=== PATIENT | female | born 1940 | race Caucasian/White ===

== ENCOUNTER 2025-03-05 16:19 | Outpatient (RCR) | payer OTHER, SELFPAY | END 2025-03-05 23:59 | disposition home or self-care (01) | LOC: CRHB 16:19 | PROVIDERS: ATTENDING PHYSICIAN Internal Medicine Clinical Cardiac Electrophysiology; FAMILY PHYSICIAN Family Medicine | DX: I25.10 Atherosclerotic heart disease of native coronary artery without angina pectoris (principal); I25.2 Old myocardial infarction; I10 Essential (primary) hypertension; Z95.5 Presence of coronary angioplasty implant and graft; E78.5 Hyperlipidemia, unspecified | CPT/HCPCS: G0422; G0423 ==

== ENCOUNTER 2025-03-23 16:19 | Outpatient (RCR) | payer OTHER, SELFPAY | END 2025-03-23 18:30 | disposition home or self-care (01) | LOC: CRHB 16:19 | PROVIDERS: ATTENDING PHYSICIAN Internal Medicine Clinical Cardiac Electrophysiology; FAMILY PHYSICIAN Family Medicine | DX: I25.10 Atherosclerotic heart disease of native coronary artery without angina pectoris (principal); I10 Essential (primary) hypertension; E78.5 Hyperlipidemia, unspecified; Z95.5 Presence of coronary angioplasty implant and graft | CPT/HCPCS: G0422 ==

== ENCOUNTER 2025-04-02 21:36 | Observation (INO) | payer OTHER, SELFPAY ==
[2025-04-02 15:03] VITALS: BP 178/77
--- NOTE | 2025-04-02 17:00 | ED.GENMED ---
History of Present Illness
General
Chief Complaint: Back Pain
Time Seen by Provider: 04/02/25 16:44
History of Present Illness
History of Present Illness:
84-year-old female presents to the emergency department for evaluation of acute onset low back pain that began when she was attempting to get into her car. She states she twisted to close the car door when she felt sudden pain which caused her to
fall back into the car seat. She reports frequent episodic pain to the right lumbar spine that radiates to the right hip, no lower extremity paresthesias or loss of urinary function. She denies any recent fevers or chills. There was no direct
trauma to the back. She has not taken any medications for pain control prior to arrival
Review of Systems
Review of Systems
Allergies reviewed?: Yes
All Other Systems: ROS reviewed and negative except as documented in HPI and ROS
Phy Exam
Physical Exam
Physical Exam:
GEN: Well appearing, NAD, WDWN
HEENT: Oral mucosa moist, no scleral icterus
Cardiac: Regular rate
Lung: No respiratory distress, no tachypnea
MSK: No gross deformity or injuries. No midline lumbar spine tenderness. Lumbar range of motion limited secondary to pain. No reproducible tenderness to the paraspinous musculature. Free unrestricted range of motion bilateral hips and lower
extremities
Skin: Good color, no pallor or jaundice, no rashes
Neuro: AO x3, moves all extremities freely
Psych: Calm, cooperative
Course
Orders/Labs/Results
Orders:
Orders
04/02/25 Breakfast
Cholesterol Lowering
At Your Request: Limited Participation
Cholesterol Lowering: Sodium, 2 Gram
04/02/25 16:59
Acetaminophen [Tylenol] 1,000 mg PO NOW STA
Lidocaine [Lidocaine 4% Patch] 1 patch TOPICAL NOW STA
Apply Lidocaine patch(s) to:: R low back
Tramadol HCl [Ultram] 50 mg PO NOW STA
04/02/25 18:12
HYDROmorphone [Dilaudid] 0.25 mg IV NOW STA
Ketorolac [Toradol] 15 mg IV NOW STA
Ondansetron Injectable [Zofran] 4 mg IV NOW STA
04/02/25 18:22
Complete Blood Count/With Diff Urgent
Comprehensive Metabolic Panel Urgent
Urinalysis Reflex To Culture Urgent
Date Specimen was Collected: 04/02/25
Time Specimen was Collected: 18:18
Urine Microscopic Reflex Cult Urgent
04/02/25 19:13
CR Lumbar Spine Comp Min 4 Vw* Urgent
Comment:
Reason For Exam: non traumatic back pain
04/02/25 21:15
Admit/Transfer Patient As Directed
Co-Sign Provider:
Level of Care: Observation services
Assign to:: Medical/Surgical
Physician / Group: Soham
Diagnosis: acute back sprain
PRN Pain Medication Management As Directed
May give lesser potent ordered pain med per pt: Yes
preference::
Protocol:: Medication orders for pain may be administered in a
manner that supports deferring to patient preference
when the pt is:
- Requesting an ordered lesser potent pain medication.
Least to most potent pain medications are defined
as: acetaminophen < NSAID < tramadol < opioids
(morphine, oxycodone, hydromorphone).
- Requesting a lesser dose of the same medication IF
ORDERED.
- Requesting a less intrusive route of administration
if both routes are prescribed by the provider (PO <
IV).
04/02/25 21:17
Code Status As Directed
Resuscitation Status: Full Code
04/02/25 21:57
Bisacodyl [Dulcolax] 10 mg RECTAL [id number] PRN
Docusate W/Senna [Senokot-S] 1 tablet PO BIDPRN PRN
HYDROmorphone [Dilaudid] 0.25 mg IV Q4HPRN PRN
Ibuprofen [Motrin] 400 mg PO Q6HPRN PRN
Ondansetron Injectable [Zofran] 4 mg IV Q6HPRN PRN
Polyethylene Glycol Powder [Miralax] 17 grams PO DAILYPRN PRN
Tramadol HCl [Ultram] 50 mg PO Q6HPRN PRN
04/02/25 21:57
VTE Contraindication Routine
VTE Mechanical Device Contraindication: Medical Contraindication
Pharmocologic Contraindication: Medical Contraindication
Activity As Directed
Activity Level: With Assistance
Vital Signs As Directed
Frequency: Per unit guidelines
Pulse Ox/spot Check [RESP] Routine
Quantity: 1
Pt Eval And Treat Routine
Activity Level: With Assistance
04/03/25 00:00
Acetaminophen [Tylenol] 650 mg PO Q4HWA
04/03/25 08:00
Amlodipine [Norvasc] 2.5 mg PO DAILY
Apixaban [Eliquis] 2.5 mg PO BID
Aspirin Low Dose EC [Aspir Low (Enteric Coated)] 81 mg PO DAILY
ISOSORBIDE MONOnitrate ER [Imdur (Extended Release)] 30 mg PO DAILY
Lisinopril [Zestril] 40 mg PO DAILY
Metoprolol Xl [Toprol Xl] 25 mg PO DAILY
Pantoprazole [Protonix] 40 mg PO DAILY
04/03/25 18:00
Atorvastatin [Lipitor] 20 mg PO QPM
Abnormal Lab Results
04/02/25
18:22
RBC 3.21 L 10^6/uL
(4.20-5.40)
Hgb 9.0 L g/dL
(12.0-16.0)
Hct 29.1 L %
(37.0-47.0)
MCHC 30.9 L g/dL
(33.0-37.0)
BUN 21 H mg/dl
(7-17)
Glucose 114 H mg/dl
(70-99)
Calcium 11.5 H mg/dl
(8.4-10.2)
AST 39 H U/L
(14-36)
Urine Bacteria (Reflex) Few A
(Negative)
Urine Albumin (Reflex) 1+ A
(Neg - Trace)
04/02/25 18:22
04/02/25 18:22
Vital Signs
Initial and Last Documented VS:
Initial Vital Signs
Temp Pulse Resp BP Pulse Ox
98.3 F 72 16 178/77 97
04/02/25 15:03 04/02/25 15:03 04/02/25 15:03 04/02/25 15:03 04/02/25 15:03
Last Documented Vital Signs
Temp Pulse Resp BP Pulse Ox
98.3 F 78 18 112/66 98
04/02/25 15:03 04/02/25 21:40 04/02/25 21:40 04/02/25 21:40 04/02/25 21:40
MDM/Problems Addressed
MDM/Problems Addressed:
Patient received multiple analgesics in the ED without significant improvement in her symptoms. She is able to ambulate. However very unsteadily. She also feels somewhat lightheaded after receiving opiates thus is not suitable for discharge to
home without further monitoring, will admit for observation
*Pulse Oximetry
SaO2: 97
Patient hypoxic: no
*Critical Care Note
Total Time (30-74mins, 75-104mins- exclusive of procedures): Not Applicable
ED Attending Note
-
Portions of this chart may have been created with voice recognition software.� Occasional wrong word or��sound alike� substitutions may have occurred due to the inherent limitations of voice recognition software.
Discharge Plan
Departure
Patient Disposition: Admit
Date of Disposition: 04/02/25
Time of Disposition: 20:48
Admit to: Med/Surg
Presentation/result/management discussed w/ accepting MD/DO: Hospitalist
Discharge Problem:
Intractable low back pain
Interventions
Interventions:
*Risk Screen - Suicide Last Done: 04/02/25 21:58
*General Assessment Last Done: 04/02/25 16:50
*Neglect/Abuse Screening Last Done: 04/02/25 15:03
*ED COVID-19 Vaccine History Last Done: 04/02/25 21:58
*Nursing Disposition Last Done: 04/02/25 22:06
ED-Musculoskeletal Assessment Last Done: 04/02/25 16:50
Discharge Date and Time
Discharge Date/Time: 04/02/25 22:07
[2025-04-02] MEDS: TYLENOL 1000 MG PO (17:26)
[2025-04-02] MEDS: LIDOCAINE 4% PATCH 1 PATCH TOPICAL (17:26)
[2025-04-02] MEDS: ULTRAM 50 MG PO (17:26)
[2025-04-02] MEDS: ZOFRAN 4 MG IV (18:27)
[2025-04-02] MEDS: TORADOL 15 MG IV (18:27)
[2025-04-02] MEDS: DILAUDID 0.25 MG IV (18:28)
[2025-04-02 18:52] LABS: Hematocrit 29.1 % (37.0-47.0); Hemoglobin 9.0 g/dL (12.0-16.0); Mean Corp Hgb Conc. 30.9 g/dL (33.0-37.0); Mean Corpuscular Volume 90.7 fL (81.0-99.0); Nucleated Red Blood Cells % 0 %; Platelet Count 302 10^3/uL (130-400); Red Cell Dist. Width 14.5 % (11.5-14.5)
[2025-04-02 19:06] LABS: ALT (SGPT) 24 U/L (0-35); AST (SGOT) 39 U/L (14-36); Albumin 3.9 g/dl (3.5-5.0); Alkaline Phosphatase 67 U/L (38-126); Blood Urea Nitrogen 21 mg/dl (7-17); Calcium 11.5 mg/dl (8.4-10.2); Carbon Dioxide 27 mmol/L (22-30); Chloride 107 mmol/L (98-107); Glucose 114 mg/dl (70-99); Potassium 4.0 mmol/L (3.5-5.1); Sodium 136 mmol/L (135-145); Total Protein 6.4 g/dl (6.3-8.2); eGFR > 60.00
[2025-04-02 19:31] LABS: Urine Character Clear (Clear)
[2025-04-02 19:40] LABS: Urine Urothelial Cell 0-2 /LPF (FEW)
[2025-04-02 19:41] LABS: Urine Red Blood Cell 0-2 /HPF (0-2)
--- NOTE | 2025-04-02 20:57 | HPS.HSE ---
Family Physician
-
Family Physician: Aries Urbina
Chief Complaint
-
Back pain
History of Present Illness
84-year-old female with past medical history significant for CAD status post VT and stents in the RCA, hypertension, hyperlipidemia, history of prior PE presenting to the emergency department with back pain.
Patient reported that she was getting in and out of her car this morning when she twisted her right leg and almost fell into the But did not fall on the ground. Immediately afterwards she has severe back pain and she could not even move her leg.
She denies having any numbness or tingling. There was no incontinence of the bladder or bowel. She was taken to urgent care initially but she could not even stand up for an x-ray and could not be prescribed any immediate pain medications due to
her risk factors.
Of note patient reported that she was recently at [facility] about a month or so ago for chest pain. The she had finding of almost total occlusion of one of the blood vessels at 90%. She already had stents with multivessel disease and
determined that she would only benefit from CABG but she is not a candidate for surgery. She was started on oral nitro and the patient states she has not had chest pain since then. She denies feeling dizzy or lightheaded.
She has continued on aspirin as well as her Eliquis.
In the emergency department she was hypertensive to 178/77, pulse 172 and she was satting 96% on room air. Temperature was 90.3. UA was unremarkable. CBC was completely within normal range with a hemoglobin of 9.0. Electrolytes BUN/creatinine
were all in normal range and glucose was normal
Medical History
Past Medical History
Past Medical History: Reports CAD (Status post VT, RCA artery stent placement), HTN, Hypercholesterolemia, Valvular Disease (Aortic stenosis) and Other (Pulmonary embolism, history of gallstones, lumbar disc herniation,)
Additional Past Medical History:
Past Surgical History: Reports Other (Cholecystectomy, hysterectomy)
Social History
Tobacco: Non-smoker
Alcohol: None
Drug: None
Family History
Family History: Not pertinent
Allergies / Home Medications
Allergies reflects when Allergies were last updated in [facility].
Home Medications with original date entered in [facility]
Allergy/Medication List:
Allergies
Allergy/AdvReac Type Severity Reaction Status Date / Time
acetaminophen (From Percocet) Allergy Nausea / Verified 04/02/25 15:03
Vomiting
codeine Allergy Nausea / Verified 04/02/25 15:03
Vomiting
oxycodone (From Percocet) Allergy Nausea / Verified 04/02/25 15:03
Vomiting
Home Medications
atorvastatin 20 mg tablet (Lipitor) 20 mg PO QPM 04/02/25
Review of Systems
-
Constitutional: Reports No Symptoms
EENT: Reports No Symptoms
Respiratory: Reports No Symptoms
Cardiac: Reports No Symptoms
Abdomen/GI: Reports No Symptoms
: Reports No Symptoms
Musculoskeletal: Reports No Symptoms
Skin: Reports No Symptoms
Neurological: Reports No Symptoms
Endocrine: Reports No Symptoms
Hematologic/Lymphatic: Reports No Symptoms
Psych: Reports No Symptoms
Physical Exam
Vital Signs
Vital Signs
Temp Pulse Resp BP Pulse Ox
98.3 F 72 16 178/77 97
04/02/25 15:03 04/02/25 15:03 04/02/25 15:03 04/02/25 15:03 04/02/25 17:01
Physical Exam
General: No Apparent Distress
HEENT: NormoCephalic, Moist mucous membranes and Atraumatic
Respiratory: Clear
Cardiac: S1/S2, Regular Rhythm and Murmur
GI: Soft, Non Tender, Non Distended and Normal Bowel Sounds; No Organomegaly
Rectal: Deferred by Provider
Musculoskeletal: No Clubbing, No Cyanosis and No Edema
Skin: No Rash
Neuro: Nonfocal/grossly intact
Laboratory Results
-
04/02/25 18:22
04/02/25 18:22
Laboratory Results
Total Bilirubin 0.7 mg/dl (0.2-1.3) 04/02/25 18:22
AST 39 U/L (14-36) H 04/02/25 18:22
ALT 24 U/L (0-35) 04/02/25 18:22
Alkaline Phosphatase 67 U/L (38-126) 04/02/25 18:22
Data Reviewed
-
Lab Data: Labs Reviewed by me
Old Records: Reviewed
Impression/Plan
-
IMPRESSION:
84-year-old with past medical history significant for CAD status post VT, hypertension, hyperlipidemia, aortic stenosis was not currently on any significant medications except for atorvastatin presents to the emergency department with intractable
low back pain. No recent trauma. She initially had severe pain but after analgesic medications in the ED she states that pain is much improved. Still have trouble ambulating and she has several flight of stairs to walk up at home and she does not
think she will be able to do it at this time.
PLAN:
Lumbago -no radicular signs, no myelopathic signs. No signs of acute infection. Patient improved with analgesics in the ED but is having difficulty ambulating.
-Admit to MedSurg observation
-Continue Tylenol [id number] for now
-low dose ibuprofen prn mild pain, tramadol moderate pain
-Lidocaine topical
-Toradol bid
-IV Dilaudid for severe pain
-Continue oxycodone 5 mg every 8 hours with hold parameter
- xray lumbosacral spine
-PT consult
CAD -chronic CAD status post VT and stenting, does have a current occlusion that cannot be intervened upon, currently no chest pain.
- Continue aspirin and statin
-Her metoprolol
- Continue Imdur
- Patient is on apixaban
Prior PE
- continue eliquis ppx
HTN
- continue her norvasc
- Continue lisinopril and metoprolol
DVT prophy�on Eliquis
CODE STATUS�full code
[2025-04-02 21:25] VITALS: BP 156/68
[2025-04-02 21:40] VITALS: BP 112/66
[2025-04-02 22:04] VITALS: BMI 24.0
[2025-04-02] MEDS: TYLENOL 650 MG PO (23:06)
--- NOTE | 2025-04-02 23:13 | PTCARENOTE ---
Pt admitted to [address] [place] [address] @ 2156 from ED. Pt ambulated to bed w/o issue. Pt AAOx3, [place], VSS. Admission assessment completed. Pt on cholesterol lowering diet. Pt with mild discomfort/soreness. Pt uses a cane at baseline but instructed to use a rolling
walker while here. Pt oriented to room, call singh within reach, bed locked and in lowest position. Reviewed plan of care with pt and answered all questions. Care ongoing.
[2025-04-03] MEDS: TYLENOL 650 MG PO ×3 (03:11→12:15)
[2025-04-03 07:35] VITALS: BP 177/88
[2025-04-03] MEDS: NORVASC 2.5 MG PO (08:16)
[2025-04-03] MEDS: ASPIR LOW (ENTERIC COATED) 81 MG PO (08:16)
[2025-04-03] MEDS: IMDUR (EXTENDED RELEASE) 30 MG PO (08:16)
[2025-04-03] MEDS: TOPROL XL 12.5 MG PO (08:16)
[2025-04-03] MEDS: PROTONIX 40 MG PO (08:17)
[2025-04-03] MEDS: ELIQUIS 2.5 MG PO (08:17)
[2025-04-03] MEDS: ZESTRIL 40 MG PO (08:17)
[2025-04-03 09:04] LABS: Blood Urea Nitrogen 22 mg/dl (7-17); Calcium 11.5 mg/dl (8.4-10.2); Carbon Dioxide 25 mmol/L (22-30); Chloride 106 mmol/L (98-107); Estimated Creatinine Clearance 35 ml/min; Glucose 75 mg/dl (70-99); Potassium 4.3 mmol/L (3.5-5.1); Sodium 136 mmol/L (135-145); eGFR > 60.00
--- NOTE | 2025-04-03 09:16 | W.PN.HOSP.TC ---
Addendum entered and electronically signed by Edison Erickson MD 04/03/25 12:05:
Please dont use billing under this note. Use Discharge billing instead
Original Note:
Today's Communication/Plan
-
PT and d/c depending on recommendations
Assessment / Plan
Assessment / Plan
84yo F with PMHx of oseoporosis, HLD, CAD with unoperable deffect, Hx of two back surgeries, GERD came to the hospital after she developed sharp lower back pain when she bended over and twisted her trunck, while closing car door. Due to severe
intractable pain stayed in the hospital overnight, however pain much decreased and controlled on tylenol only. XR showed no vertebral compression deformity and no spinal hardware failure. PT/OT recommended to evaluate the patient since she has to
use stairs at home. Also found new hypercalcemia. Patient s former smoker, so outpatient low dose CT of the chest and follow up for PTH level with Ca level recommended - patient verbalized understanding of the instructions
A/P:
#Lower back pain
no focal neurological deficit, no urinary/stool incontinence or retention
muscle strain vs mild radiculopathy
Voltaren topical
Tylenol
PT
#Hypercalcemia
mild
not on diuretics
checking PTH and vit D - follow up result with PCP
Low dose CT chest recommended as outpatient. XR chest in hospital is reasonable.
#Essential HTN
#Bradycardia
HR in 50th - decrease Toprol
cont home meds
#Hx of Pulmonary embolism
#CAD, stable
#GERD
#Osteoporosis
#HLD
cont home meds
DVT ppx Eliquis
Full code
I have spent at least 58min reviewing chart, test results and providing direct patient care
Anticipated Discharge: Today
Subjective/Interval History
-
Date of Service: April 03, 2025
Objective Data
-
Labs:
Laboratory Results
04/03/25
08:27
Sodium 136
Potassium 4.3
Chloride 106
Carbon Dioxide 25
BUN 22 H
Creatinine 0.9
Glucose 75
Calcium 11.5 H
Vital Signs:
Vital Signs
Temp Pulse Resp BP Pulse Ox
97.9 F 62 18 177/88 100
04/03/25 07:35 04/03/25 08:16 04/03/25 07:35 04/03/25 07:35 04/03/25 07:35
I&O
04/02/25 04/03/25 04/04/25
06:59 06:59 06:59
Intake Total 960 / 960
Balance 960 / 960
Review of Systems
-
History Source: Patient
All other systems: Reviewed and negative
Physical Exam
-
General: No Apparent Distress
HEENT: Normocephalic
Respiratory: Clear to Auscultation
Neuro: Awake, Oriented, AO x 3, No Motor Deficits and Nonfocal/Grossly Intact
Psych: Calm
[2025-04-03 09:20] LABS: Vitamin D, 25-OH*** 35.4 ng/mL (30-80)
[2025-04-03 11:52] LABS: Hepatitis B Surface Antigen Negative (Negative)
--- NOTE | 2025-04-03 12:03 | W.DCSUMMARY ---
Discharge Summary
Discharge Data
Date of Admission: 04/02/25
Date of Discharge: 04/03/25
-
Pending Results: No
Hospital Course
84yo F with PMHx of osteoporosis, HLD, CAD with inoperable defect, Hx of two back surgeries, GERD came to the hospital after she developed sharp lower back pain when she bended over and twisted her trunck, while closing car door. Due to severe
intractable pain stayed in the hospital overnight, however pain much decreased and controlled on tylenol only. XR showed no vertebral compression deformity and no spinal hardware failure. PT recommended discharge home. Also found new hypercalcemia.
Patient s former smoker, so outpatient low dose CT of the chest and follow up for PTH level with Ca level recommended - patient verbalized understanding of the instructions
I have spent at least 58min reviewing chart, test results and providing direct patient care
Patient was managed for:
#Lower back pain
#Hypercalcemia
#mild anemia - w/u by PCP
#Essential HTN
#Bradycardia
HR in 50th - decrease Toprol
#Hx of Pulmonary embolism
#CAD, stable
#GERD
#Osteoporosis
#HLD
Discharge Plan
-
Patient Disposition: Home (Routine Discharge)
Discharge Diagnosis/Procedures: back pain
Diet: Low Cholesterol
Activity: As tolerated
Referrals:
Aries Urbina DO [Family Provider, Family Practice] - in one to two weeks
Referral Note: repeat calcium blood test, if elevated - consider further w/u, low dose chest CT. also anemia workup
Prescriptions:
New
diclofenac sodium 1 % Gel
2 g topical QID 5 Days Qty: 50 0RF
Rx Instructions:
apply to lower back
Continued
atorvastatin [Lipitor] 20 mg Tablet
20 mg PO QPM
acetaminophen [Tylenol] 325 mg Tablet
650 mg PO Q6HPRN PRN (Reason: mild pain)
isosorbide mononitrate 30 mg Tablet Extended Release 24 Hr
30 mg PO DAILY
alendronate [Fosamax] 70 mg Tablet
70 mg PO MO
amlodipine [Norvasc] 2.5 mg Tablet
2.5 mg PO DAILY
aspirin 81 mg Tablet,Delayed Release (Dr/Ec)
81 mg PO DAILY
metoprolol succinate [Toprol XL] 25 mg Tablet Extended Release 24 Hr
25 mg PO DAILY
lisinopril 40 mg Tablet
40 mg PO DAILY
fenofibrate nanocrystallized [Tricor] 145 mg Tablet
145 mg PO DAILY
cholecalciferol (vitamin D3) [Vitamin D3] 25 mcg (1,000 unit) Tablet
25 mcg PO DAILY
omeprazole 20 mg Tablet,Delayed Release (Dr/Ec)
20 mg PO DAILY
Eliquis 2.5 mg Tablet
2.5 mg PO BID
Xiidra 5 % Dropperette
1 drp BOTH EYES BIDPRN PRN (Reason: inflammation)
Discharge Orders:
Discharge Patient (As Directed); Ordered 04/03/25
Ordered By: Edison Erickson
Discharge Date and Time
Print Language: MALIAN
[2025-04-03 12:10] LABS: Hepatitis C Antibody Negative (Negative)
[2025-04-03] MEDS: DICLOFENAC 1% TOPICAL GEL 100 GRAM TOPICAL (12:16)
[2025-04-03 12:26] VITALS: BP 112/40
--- NOTE | 2025-04-03 12:27 | CM ---
Patient will d/c home today. Patient seen bedside, initial assessment completed. Patient is a 84-year-old female with past medical history significant for CAD status post MS and stents in the RCA, hypertension, hyperlipidemia, history of prior PE
presenting to the emergency department with back pain.
Patient resides w/ spouse, son in law and grandson in a 2STH, no steps to enter. 13 steps to second floor to bedroom and bathroom. Patient is independent w/ cane, independent w/ ADLs and personal care. Patient drives. Denies SNF hx. Patient was
recently going to the cardiac rehab at [facility] 3 times a week, however, patient can no longer afford it and now goes to [facility] for therapy. Patient engaged in OP PT for shoulder last year.
Address, point of contact and insurance
PCP: Aries Urbina
Pharmacy: [facility]
Patient admitted under obs services. DAO form verbally reviewed, copy provided, copy on chart
Therapy evaluated patient, no skilled needs. Patient declined need for home PT
Daughter will transport patient home
Plan: Home, no needs
== END 2025-04-03 13:15 | disposition home or self-care (01) ==
LOC: 2 SOUTH 21:36
PROVIDERS: Physician Assistant; ADMITTING PHYSICIAN Internal Medicine; ATTENDING PHYSICIAN Internal Medicine; EMERGENCY PHYSICIAN Emergency Medicine; FAMILY PHYSICIAN Family Medicine
DX: M54.9 Dorsalgia, unspecified (principal); M25.551 Pain in right hip; S39.012A Strain of muscle, fascia and tendon of lower back, initial encounter; X50.0XXA Overexertion from strenuous movement or load, initial encounter; Y93.89 Activity, other specified; Y92.9 Unspecified place or not applicable; I25.10 Atherosclerotic heart disease of native coronary artery without angina pectoris; I10 Essential (primary) hypertension; M47.816 Spondylosis without myelopathy or radiculopathy, lumbar region; E83.52 Hypercalcemia; R00.1 Bradycardia, unspecified; R26.2 Difficulty in walking, not elsewhere classified; R05.9 Cough, unspecified; K21.9 Gastro-esophageal reflux disease without esophagitis; M81.0 Age-related osteoporosis without current pathological fracture; E78.00 Pure hypercholesterolemia, unspecified; I35.0 Nonrheumatic aortic (valve) stenosis; I25.2 Old myocardial infarction; Z95.5 Presence of coronary angioplasty implant and graft; Z79.01 Long term (current) use of anticoagulants; Z79.899 Other long term (current) drug therapy; Z90.49 Acquired absence of other specified parts of digestive tract; Z86.711 Personal history of pulmonary embolism; Z90.710 Acquired absence of both cervix and uterus; Z88.5 Allergy status to narcotic agent; Z87.891 Personal history of nicotine dependence
CPT/HCPCS: 71046; 72110; 80048; 80053; 81003; 81015; 82306; 82550; 83970; 85025; 86704; 86706; 86803; 87340; 96374; 96375; 97161; 99285; G0378

== ENCOUNTER → 2025-04-17 12:06 | Outpatient (REF) | payer OTHER, SELFPAY ==
[2025-04-17 14:04] LABS: Blood Urea Nitrogen 19 mg/dl (7-17); Calcium 12.5 mg/dl (8.4-10.2); Carbon Dioxide 30 mmol/L (22-30); Chloride 104 mmol/L (98-107); Glucose 82 mg/dl (70-99); Potassium 4.5 mmol/L (3.5-5.1); Sodium 138 mmol/L (135-145); eGFR > 60.00
== END ==
LOC: REG 12:06
PROVIDERS: ATTENDING PHYSICIAN Surgery Vascular Surgery; FAMILY PHYSICIAN Family Medicine
DX: I73.9 Peripheral vascular disease, unspecified (principal)
CPT/HCPCS: 36415; 80048

== ENCOUNTER → 2025-05-04 14:52 | Outpatient (REF) | payer OTHER, SELFPAY | LOC: RAD 14:52 | PROVIDERS: ATTENDING PHYSICIAN Surgery Vascular Surgery; FAMILY PHYSICIAN Family Medicine | DX: I73.9 Peripheral vascular disease, unspecified (principal) | CPT/HCPCS: 75635; 93922; Q9967 ==